=== PATIENT | male | born 1965 | race Caucasian/White ===

== ENCOUNTER 2016-09-05 16:40 | Emergency (ER) | payer SELFPAY ==
[2016-09-05 16:53] VITALS: BP 138/87
[2016-09-05] MEDS ORDERED: Tetan/Diph/Pertus SYR(Tdap)* 0.5 ML SYR(BOOSTRIX) use SYR IM ONE (16:56)
[2016-09-05] MEDS ORDERED: Lidocaine 2% PF* 5 ML VIAL ONE (16:59)
--- NOTE | 2016-09-05 18:04 | UC ---
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 LAST TETANUS UNKNOWN - History Of Current Complaint Chief Complaint: UCLaceration Stated Complaint: FINGER LAC Time Seen by Provider: 09/05/16 16:51 Hx Obtained From: Patient Laceration Location: Finger - RIGHT FOURTH Mechanism Of Injury: Sharp Trauma Pain Intensity: 0 Pain Scale Used: 0-10 Numeric Related History: Dominant Hand Right - Allergies/Home Medications Allergies/Adverse Reactions: Allergies Allergy/AdvReac Type Severity Reaction Status Date / Time Clarithromycin [From Biaxin] Allergy Rash Verified 09/05/16 16:53 Home Medications: Home Medications NK [No Home Medications Reported] 09/05/16 [History Confirmed 09/05/16] PMH/Surg Hx/FS Hx/Imm Hx Previously Healthy: Yes Endocrine History Of: Denies: Diabetes, Thyroid Disease Cardiovascular History Of: Denies: Cardiac Disorders, Hypertension Respiratory History Of: Denies: COPD, Asthma GI/ History Of: Denies: Ulcer - Surgical History Surgical History: None - Family History Known Family History: Negative: Blood Disorder - Social History Occupation: Employed Full-time Lives: With Family Alcohol Use: None Substance Use Type: None Smoking Status (MU): Heavy Every Day Tobacco Smoker Type: Cigarettes Review of Systems Constitutional: Negative Skin: Other - LACERATION DORSAL RIGHT FOURTH FINGER Eyes: Negative ENT: Negative Respiratory: Negative Cardiovascular: Negative Gastrointestinal: Negative Genitourinary: Negative Motor: Negative Neurovascular: Negative Musculoskeletal: Negative Neurological: Negative Psychological: Negative All Other Systems Reviewed And Are Negative: Yes Physical Exam Triage Information Reviewed: Yes Appearance: Well-Appearing, No Pain Distress, Well-Nourished Vital Signs: Initial Vital Signs Temp 98.1 F 09/05/16 16:50 Pulse 88 09/05/16 16:50 Resp 18 09/05/16 16:50 BP 138/87 09/05/16 16:50 Pulse Ox 97 09/05/16 16:50 Vital Signs Reviewed: Yes Eye Exam: Normal ENT Exam: Normal ENT: Positive: Normal ENT inspection, Hearing grossly normal, TMs normal Dental Exam: Normal Neck exam: Normal Neck: Positive: Supple, Nontender, No Lymphadenopathy Respiratory Exam: Normal Respiratory: Positive: Chest non-tender, Lungs clear, Normal breath sounds, No respiratory distress, No accessory muscle use Cardiovascular Exam: Normal Cardiovascular: Positive: RRR, No Murmur, Pulses Normal Abdominal Exam: Normal Musculoskeletal Exam: Normal Musculoskeletal: Positive: Strength Intact Neurological Exam: Normal Psychological Exam: Normal Skin: Positive: Other - LACERATION DORSAL RIGHT FOURTH FINGER 3CM Laceration Repair - Laceration Repair 1 Laceration Size After Repair: Length (cm) - 3, Width (mm) - 4, Depth (mm) - 4 Type Injection: Digital Anesthesia Used: 2.0% Lido Cleansing Completed Via Routine Prep: Yes Irrigation With Pressure Irrigation Device: Yes Closure Material: Sutures - 4 X 4-0 Closure Method: Single Layer Suture Of: Skin Suture Type: Prolene Laceration Course/Dx - Differential Dx - Laceration/Wound Differental Diagnoses: Avulsion, Laceration, Tendon Laceration Provider Diagnoses: LACERATION RIGHT DORSAL FOURTH FINGER WITH REPAIR Discharge - Discharge Plan Condition: Stable Disposition: HOME Patient Education Materials: Finger Laceration (ED) Referrals: [facility] [place] [facility] [Outside] No Primary Care Phys,NOPCP [Primary Care Provider] - Additional Instructions: PLEASE HAVE SUTURES REMOVED IN TEN DAYS Images Hands: 1 - SUTURE HERE
== END 2016-09-05 17:55 | disposition home or self-care (01) ==
LOC: UCEAST 16:40
DX: S61.214A Laceration without foreign body of right ring finger without damage to nail, initial encounter (principal); W31.89XA Contact with other specified machinery, initial encounter; Z88.3 Allergy status to other anti-infective agents; F17.210 Nicotine dependence, cigarettes, uncomplicated
CPT/HCPCS: 12001; 90715; 99201; G0463

== ENCOUNTER 2016-09-15 10:04 | Emergency (ER) | payer SELFPAY ==
[2016-09-15 11:24] VITALS: BP 129/85
[2016-09-15] MEDS ORDERED: Benzoin COMPOUND swab* 1 applicator pak TOPICAL ONE (11:29)
[2016-09-15] MEDS ORDERED: Benzoin Compound STICK ONE (11:33)
--- NOTE | 2016-09-15 11:38 | UC ---
HPI Wound/Suture Re-check - HPI Summary HPI Summary: here to have stitches removed from right index finger - History Of Current Complaint Chief Complaint: UCWounds Stated Complaint: STITCH REMOVAL Time Seen by Provider: 09/15/16 11:27 Hx Obtained From: Patient Onset/Duration: Sudden Onset, Lasting Weeks - 2, Still Present Surgical Site: 2 Severity: Mild Pain Intensity: 0 Pain Scale Used: 0-10 Numeric Surgery Date: 09/01/16 - Allergies/Home Medications Allergies/Adverse Reactions: Allergies Allergy/AdvReac Type Severity Reaction Status Date / Time Clarithromycin [From Biaxin] Allergy Rash Verified 09/05/16 16:53 PMH/Surg Hx/FS Hx/Imm Hx Previously Healthy: Yes Endocrine History Of: Denies: Diabetes, Thyroid Disease Cardiovascular History Of: Denies: Cardiac Disorders, Hypertension Respiratory History Of: Denies: COPD, Asthma GI/ History Of: Denies: Ulcer - Surgical History Surgical History: None - Family History Known Family History: Positive: None Negative: Blood Disorder - Social History Occupation: Employed Full-time Lives: With Family Alcohol Use: None Substance Use Type: None Smoking Status (MU): Heavy Every Day Tobacco Smoker Type: Cigarettes Have You Smoked in the Last Year: Yes Cessation Counseling: Patient Advised to Stop Review of Systems Constitutional: Negative Skin: Other - healing wounf right index finger Eyes: Negative ENT: Negative Respiratory: Negative Cardiovascular: Negative Gastrointestinal: Negative Genitourinary: Negative Motor: Negative Neurovascular: Negative Musculoskeletal: Negative Neurological: Negative Psychological: Negative All Other Systems Reviewed And Are Negative: Yes Physical Exam Triage Information Reviewed: Yes Appearance: Well-Appearing, No Pain Distress, Well-Nourished Vital Signs: Initial Vital Signs Temp 98.1 F 09/15/16 11:21 Pulse 69 09/15/16 11:21 Resp 18 09/15/16 11:21 BP 129/85 09/15/16 11:21 Pulse Ox 95 09/15/16 11:21 Vital Signs Reviewed: Yes Eye Exam: Normal Eyes: Positive: Conjunctiva Clear ENT Exam: Normal ENT: Positive: Normal ENT inspection, Hearing grossly normal. Negative: Nasal congestion, Nasal drainage, Trismus, Muffled/hoarse voice Dental Exam: Normal Neck exam: Normal Neck: Positive: Supple, Nontender, No Lymphadenopathy Respiratory Exam: Normal Respiratory: Positive: Chest non-tender, Lungs clear, Normal breath sounds, No respiratory distress, No accessory muscle use Cardiovascular Exam: Normal Cardiovascular: Positive: RRR, No Murmur, Pulses Normal, Brisk Capillary Refill Musculoskeletal Exam: Normal Musculoskeletal: Positive: Strength Intact, ROM Intact, No Edema Neurological Exam: Normal Neurological: Positive: Alert, Muscle Tone Normal Psychological Exam: Normal Skin Exam: Normal Skin: Positive: Other - healing wound left index finger Course/Dx - Course Course Of Treatment: steri strips for additional support follow with pcp prn - Differential Dx - Laceration/Wound Differential Diagnoses: Healing Wound, Suture Removal Provider Diagnoses: suture removal right idex finger , healing wound, nicotine dependant Discharge - Discharge Plan Condition: Stable Disposition: HOME Patient Education Materials: Stitches Removal (ED), Steristrips (ED) Referrals: [facility] [place] [facility]ERR[facility] [Outside] - If Needed
== END 2016-09-15 11:46 | disposition home or self-care (01) ==
LOC: UCEAST 10:04
DX: S61.200D Unspecified open wound of right index finger without damage to nail, subsequent encounter (principal); X58.XXXD Exposure to other specified factors, subsequent encounter; Z88.1 Allergy status to other antibiotic agents; F17.210 Nicotine dependence, cigarettes, uncomplicated

== ENCOUNTER 2017-06-24 17:53 | Emergency (ER) | payer SELFPAY ==
[2017-06-24 20:01] VITALS: BP 155/86
--- NOTE | 2017-06-24 20:37 | RAD ---
HISTORY: Left wrist injury COMPARISONS: None VIEWS: 4, Frontal, lateral, oblique, and scaphoid deviation views of the left wrist FINDINGS: BONE DENSITY: Normal. BONES: There is no displaced fracture. JOINTS: There is no arthropathy. ALIGNMENT: There is no dislocation. SOFT TISSUES: Unremarkable. OTHER FINDINGS: None. IMPRESSION: NO ACUTE OSSEOUS INJURY. IF SYMPTOMS PERSIST, RECOMMEND REPEAT IMAGING.
--- NOTE | 2017-06-28 09:59 | ED ---
Upper Extremity Pain - HPI Summary HPI Summary: Patient is an otherwise healthy 52-year-old male who presents to the ED with chief complaint of left wrist pain after a pull cord backlashed on his 4 burgess. He states the cord pulled at his wrist. He has range of motion, but with pain. Denies numbness, tingling, color or temperature changes to the hand. Pulses +2 bilaterally. Cap refill less than 2. He denies taking any medications daily. He has not taken anything for relief, and arrives with ice applied. - History of Current Complaint Chief Complaint: EDExtremityUpper Stated Complaint: SWOLLEN RT WRIST Time Seen by Provider: 06/24/17 20:13 Hx Obtained From: Patient Mechanism Of Injury: Twisted Onset/Duration: Started Hours Ago Timing: Constant Severity Initially: Moderate Severity Currently: Moderate Pain Location: Wrist Character: Aching Aggravating Factor(s): Movement Alleviating Factor(s): Rest, Ice Associated Signs & Symptoms: Positive: Negative Related History: Dominant Hand Right - Risk Factors Non-Orthopedic Risk Factor: Negative DVT Risk Factors: Negative Septic Arthritis Risk Factor: Negative Compartment Syndrome Risk Factors: Pain - Allergies/Home Medications Allergies/Adverse Reactions: Allergies Allergy/AdvReac Type Severity Reaction Status Date / Time MS Clarithromycin Allergy Rash Verified 09/05/16 16:53 [From Biaxin] PMH/Surg Hx/FS Hx/Imm Hx Previously Healthy: Yes Endocrine/Hematology History: Denies: Hx Diabetes, Hx Thyroid Disease Cardiovascular History: Denies: Hx Hypertension Respiratory History: Denies: Hx Asthma, Hx Chronic Obstructive Pulmonary Disease (COPD) GI History: Denies: Hx Ulcer Infectious Disease History: No Infectious Disease History: Denies: Hx Hepatitis, Hx Human Immunodeficiency Virus (HIV), Traveled Outside the [place] in Last 30 Days - Family History Known Family History: Positive: None Negative: Blood Disorder - Social History Occupation: Employed Full-time Lives: With Family Alcohol Use: None Hx Substance Use: No Substance Use Type: Reports: None Hx Tobacco Use: No Smoking Status (MU): Heavy Every Day Tobacco Smoker Type: Cigarettes Have You Smoked in the Last Year: Yes Review of Systems Constitutional: Negative Negative: Chills, Fatigue Eyes: Negative Cardiovascular: Negative Respiratory: Negative Genitourinary: Negative Positive: no symptoms reported, see HPI Positive: Arthralgia - left wrist pain Neurological: Negative Psychological: Normal All Other Systems Reviewed And Are Negative: Yes Physical Exam Triage Information Reviewed: Yes Vital Signs On Initial Exam: Initial Vitals Temp Pulse Resp BP Pulse Ox 97.6 F 91 17 148/85 98 06/24/17 18:36 06/24/17 18:36 06/24/17 18:36 06/24/17 18:36 06/24/17 18:36 Vital Signs Reviewed: Yes Appearance: Positive: Well-Appearing, Well-Nourished Skin: Positive: Warm, Skin Color Reflects Adequate Perfusion Head/Face: Positive: Normal Head/Face Inspection Eyes: Positive: EOMI, JUSTIN, Conjunctiva Clear Neck: Positive: Supple, Nontender, No Lymphadenopathy Respiratory/Lung Sounds: Positive: Clear to Auscultation, Breath Sounds Present Cardiovascular: Positive: Normal, RRR, Pulses are Symmetrical in both Upper and Lower Extremities Musculoskeletal: Positive: Pain @ - Left dorsum of the wrist Neurological: Positive: Speech Normal Psychiatric: Positive: Normal, Affect/Mood Appropriate Diagnostics - Vital Signs Vital Signs Temp Pulse Resp BP Pulse Ox 06/24/17 20:00 99.3 F 85 14 155/86 100 06/24/17 18:36 97.6 F 91 17 148/85 98 - Laboratory Lab Statement: Any lab studies that have been ordered have been reviewed, and results considered in the medical decision making process. Course/Dx - Course Course Of Treatment: During the course of treatment and x-ray of the wrist was obtained and negative for any acute findings. Korey wrap for comfort. Encouraged ibuprofen 600 mg 3 times daily and ice. He is okay with plan and discharged and will follow-up for any worsening or changing symptoms. - Diagnoses Provider Diagnoses: Contusion of left wrist Discharge - Discharge Plan Condition: Stable Disposition: HOME Patient Education Materials: Wrist Sprain (ED) Forms: *Work Release Referrals: No Primary Care Phys,NOPCP [Primary Care Provider] - Additional Instructions: Ibuprofen 600 mg 3 times daily Ice to the area Keep the area Korey wrapped 2 days
== END 2017-06-24 21:13 | disposition home or self-care (01) ==
LOC: ED 17:53
DX: S60.212A Contusion of left wrist, initial encounter (principal); X50.0XXA Overexertion from strenuous movement or load, initial encounter; Y92.9 Unspecified place or not applicable; F17.210 Nicotine dependence, cigarettes, uncomplicated; Z88.3 Allergy status to other anti-infective agents
CPT/HCPCS: 99282

== ENCOUNTER 2023-07-24 23:04 | Observation (INO) ==
[2023-07-24] MEDS: Lactated Ringers 1000 ml BAG 1,000 ML IV SCH (23:30)
[2023-07-24] MEDS: Ondansetron 4 mg VIAL 2 MG/ML 2 ml VIAL IV ONE (23:31)
[2023-07-25 00:01] LABS: ABS Basophils 0.1 10^3/uL (0.0-0.1); ABS Lymphocytes 0.6 10^3/uL (1.0-4.8); ABS Neutrophils 14.4 10^3/uL (1.5-7.6); Eosinophil % 0.1 %; Hematocrit 37.5 % (38-53); Hemoglobin 12.8 g/dL (13.2-16.3); Lymphocyte % 3.5 %; Mean Corpuscular Hemoglobin 30.8 pg (27-33); Mean Corpuscular Hgb Conc 34.1 g/dL (31-36); Mean Corpuscular Volume 90.3 fL (80-97); Mean Platelet Volume 8.4 fL (7.5-11.2); Platelet Count 140 10^3/uL (150-450); Red Blood Count 4.15 10^6/uL (4.06-5.63); Red Cell Distribution Width 14.1 % (12-17); White Blood Count 16.1 10^3/uL (3.6-10.2)
[2023-07-25 00:13] LABS: Albumin/Globulin Ratio 0.9 (1-3); C Reactive Protein 182.53 mg/L (<8.01); Calcium 7.5 mg/dL (8.6-10.3); Creatinine, Serum 1.67 mg/dL (0.67-1.17); Globulin 3.2 g/dL (2-4); Magnesium 2.4 mg/dL (1.9-2.7); Total Bilirubin 0.6 mg/dL (0.2-1.0); Total Protein 6.2 g/dL (6.4-8.9); eGFR CKD-EPI 47.7 (>60)
[2023-07-25] MEDS: Iodixanol (CONTRAST) 320 MG/ML 100 ML SDV IV ONE (03:55)
[2023-07-25 06:09] LABS: Urine Appearance Clear; Urine Bacteria Absent /HPF (Absent); Urine Bilirubin Negative (Negative); Urine Blood 2+ (Negative); Urine Color Yellow; Urine Glucose Negative (Negative); Urine Ketones Negative (Negative); Urine Nitrite Negative (Negative); Urine Protein 1+ (>=30 mg/dL) (Negative); Urine Red Blood Cell 3+(>10/hpf) /HPF (0-Trace); Urine Specific Gravity >1.050 (1.002-1.030); Urine Squamous Epithelial Cell Present /HPF (Absent); Urine Urobilinogen Negative (Negative); Urine White Blood Cell 1+(6-10/hpf) /HPF (0-Trace); Urine pH 5.5 (5.0-8.0)
[2023-07-25] MEDS: Nitrofurantoin (monohydrate/macrocrystals) 100 mg CAP PO ONE (07:09)
[2023-07-25] MEDS: Lactated Ringers 1000 ml BAG 1,000 ML IV ONE (08:00)
[2023-07-25] MEDS: Acetaminophen IV 1 GM/100ML 1,000 MG/100 ML BAG IV ONE (08:01)
[2023-07-25] MEDS: cefTRIAXone 1 gm/50 mL D5W 1 GM/50 ML BAG IV ONE (08:59)
[2023-07-25 10:06] LABS: Hematocrit 35.3 % (38-53); Hemoglobin 12.1 g/dL (13.2-16.3); Mean Corpuscular Hemoglobin 31.1 pg (27-33); Mean Corpuscular Hgb Conc 34.3 g/dL (31-36); Mean Corpuscular Volume 90.6 fL (80-97); Mean Platelet Volume 8.2 fL (7.5-11.2); Platelet Count 117 10^3/uL (150-450); Red Cell Distribution Width 14.1 % (12-17); White Blood Count 13.3 10^3/uL (3.6-10.2)
[2023-07-25] MEDS ORDERED: Polyethylene Glycol 3350 17 GM PACKET PO PRN (10:34)
[2023-07-25 11:02] LABS: Albumin 2.6 g/dL (3.2-5.2); Calcium 7.5 mg/dL (8.6-10.3); Creatinine, Serum 1.32 mg/dL (0.67-1.17); Globulin 2.7 g/dL (2-4); Potassium 3.8 mmol/L (3.5-5.0); Total Bilirubin 0.5 mg/dL (0.2-1.0); Total Protein 5.3 g/dL (6.4-8.9); eGFR CKD-EPI 63.3 (>60)
[2023-07-25 11:27] LABS: ABS Lymphocytes 0.7 10^3/uL (1.0-4.8); ABS Monocytes 0.6 10^3/uL (0.0-1.1); Eosinophil % 0.3 %; Lymphocyte % 5.1 %; RBC Morphology Normal (Normal)
[2023-07-25] MEDS: Lactated Ringers 1000 ml BAG 1,000 ML IV SCH (12:22)
[2023-07-25] MEDS: Enoxaparin 30 MG/0.3 ML SYR SUBCUT SCH (13:14)
[2023-07-26 06:07] LABS: ABS Monocytes 0.9 10^3/uL (0.0-1.1); ABS Neutrophils 9.1 10^3/uL (1.5-7.6); ABS Nucleated RBC 0.01 10^3/ul; Eosinophil % 0.3 %; Hematocrit 34.7 % (38-53); Hemoglobin 11.9 g/dL (13.2-16.3); Lymphocyte % 9.1 %; Mean Corpuscular Hemoglobin 30.9 pg (27-33); Mean Corpuscular Hgb Conc 34.3 g/dL (31-36); Mean Corpuscular Volume 90.2 fL (80-97); Mean Platelet Volume 8.6 fL (7.5-11.2); Nucleated Red Blood Cells % 0.1 %/100WBC (0.0-0.8); Platelet Count 114 10^3/uL (150-450); Red Blood Count 3.85 10^6/uL (4.06-5.63); Red Cell Distribution Width 14.1 % (12-17); White Blood Count 11.1 10^3/uL (3.6-10.2)
[2023-07-26 06:22] LABS: Calcium 7.3 mg/dL (8.6-10.3); Creatinine, Serum 0.84 mg/dL (0.67-1.17); eGFR CKD-EPI 102.3 (>60)
[2023-07-26] MEDS ORDERED: cefTRIAXone 1 gm/50 mL D5W 1 GM/50 ML BAG IV SCH (09:00)
[2023-07-26] MEDS: cefTRIAXone 1 gm/50 mL D5W 1 GM/50 ML BAG IV SCH (11:29)
[2023-07-26 12:53] LABS: Folate 7.85 ng/mL (5.90-24.80)
[2023-07-26 13:33] LABS: Ferritin 1485.7 ng/mL (24-336)
[2023-07-26 18:04] LABS: RBC Parasite Smear No Parasites Seen (No Parasite)
[2023-07-27] MEDS: Enoxaparin 40 MG/0.4 ML SYR SUBCUT SCH (08:50)
[2023-07-27 09:57] LABS: ABS Basophils 0.1 10^3/uL (0.0-0.1); ABS Lymphocytes 1.3 10^3/uL (1.0-4.8); ABS Monocytes 0.4 10^3/uL (0.0-1.1); ABS Neutrophils 8.2 10^3/uL (1.5-7.6); Eosinophil % 0.4 %; Hemoglobin 11.8 g/dL (13.2-16.3); Lymphocyte % 12.6 %; Mean Corpuscular Hemoglobin 30.7 pg (27-33); Mean Corpuscular Hgb Conc 33.9 g/dL (31-36); Mean Corpuscular Volume 90.7 fL (80-97); Mean Platelet Volume 8.2 fL (7.5-11.2); Platelet Count 142 10^3/uL (150-450); Red Blood Count 3.86 10^6/uL (4.06-5.63); Red Cell Distribution Width 14.3 % (12-17)
[2023-07-27 10:20] LABS: Calcium 7.4 mg/dL (8.6-10.3); Creatinine, Serum 0.8 mg/dL (0.67-1.17); eGFR CKD-EPI 103.9 (>60)
[2023-07-27 11:17] LABS: C Reactive Protein 82.79 mg/L (<8.01)
[2023-07-28 10:47] VITALS: BP 138/72
[2023-07-29 16:21] LABS: Anaplasma phagocytophilum Negative (Negative); B. miyamotoi PCR, B Negative (Negative); Babesia divergens/MO-1 Negative (Negative); Babesia ducani Negative (Negative); Ehrlichia chaffeensis Negative (Negative); Ehrlichia ewingii/canis Negative (Negative); Ehrlichia muris eauclairensis Negative (Negative)
[2023-07-29 16:38] LABS: IgG Immunoblot Positive (Negative); IgM Immunoblot Negative (Negative)
== END 2023-07-28 11:24 | disposition short-term general hospital (02) ==
LOC: EDHOLD 23:04 → ED 23:04 → SUATTDRO 07-25 08:57 → SSU 07-25 14:47
PROVIDERS: ADMIT Internal Medicine; ATTEND Hospitalist

== ENCOUNTER 2023-08-02 06:05 | Inpatient (IN) ==
[2023-08-02] MEDS: MULTIPLE ELECTROLYTES IV ONE (06:57)
[2023-08-02] MEDS: Piperacillin/Tazobac 3.375 BAG 3.375 GM/100 ML BAG IV ONE (06:59)
[2023-08-02] MEDS ORDERED: Vancomycin 1,000 MG in NS 0.9% 250 ml 250 ML IVPB ONE (07:00)
[2023-08-02 07:03] LABS: ABS Basophils 0.1 10^3/uL (0.0-0.1); ABS Lymphocytes 0.8 10^3/uL (1.0-4.8); ABS Monocytes 0.6 10^3/uL (0.0-1.1); ABS Neutrophils 15.6 10^3/uL (1.5-7.6); Hematocrit 38.7 % (38-53); Hemoglobin 13.3 g/dL (13.2-16.3); Lymphocyte % 4.9 %; Mean Corpuscular Hemoglobin 31.1 pg (27-33); Mean Corpuscular Hgb Conc 34.4 g/dL (31-36); Mean Corpuscular Volume 90.4 fL (80-97); Mean Platelet Volume 7.2 fL (7.5-11.2); Platelet Count 333 10^3/uL (150-450); Red Blood Count 4.28 10^6/uL (4.06-5.63); Red Cell Distribution Width 14.5 % (12-17); White Blood Count 17.1 10^3/uL (3.6-10.2)
[2023-08-02 07:10] LABS: INR 1.38 (0.83-1.13)
[2023-08-02 07:16] LABS: High Sens Troponin Baseline 29 pg/mL (<20)
[2023-08-02 07:49] LABS: ALT 145 U/L (7-52); AST 52 U/L (13-39); Albumin 3.4 g/dL (3.2-5.2); Albumin/Globulin Ratio 0.9 (1-3); Alcohol, S < 13 mg/dL (<13); Alkaline Phosphatase 99 U/L (35-149); Anion Gap 10 mmol/L (2-16); Blood Urea Nitrogen 19 mg/dL (6-24); CO2 Carbon Dioxide 26 mmol/L (22-32); Calcium 8.6 mg/dL (8.6-10.3); Chloride 96 mmol/L (101-111); Creatine Kinase 45 U/L (10-223); Creatinine, Serum 1.47 mg/dL (0.67-1.17); Globulin 3.7 g/dL (2-4); Glucose 102 mg/dL (70-100); Potassium 4.5 mmol/L (3.5-5.0); Sodium 132 mmol/L (135-145); Total Bilirubin 0.7 mg/dL (0.2-1.0); Total Protein 7.1 g/dL (6.4-8.9); eGFR CKD-EPI 55.6 (>60)
[2023-08-02] MEDS ORDERED: Albuterol HFA INHALER 8 gm MDI INH PRN (08:05)
[2023-08-02 08:17] LABS: High Sensitivity Troponin 1 Hr 25 pg/mL (<20)
[2023-08-02 08:48] LABS: Urine Appearance Clear; Urine Bilirubin Negative (Negative); Urine Blood Negative (Negative); Urine Color Light-Yellow; Urine Glucose Negative (Negative); Urine Ketones Negative (Negative); Urine Nitrite Negative (Negative); Urine Protein Trace (Negative); Urine Specific Gravity 1.017 (1.002-1.030); Urine Urobilinogen Negative (Negative); Urine pH 6.5 (5.0-8.0)
[2023-08-02] MEDS: Iohexol 350 (CONTRAST) 500 ML MDV IV ONE (09:02)
[2023-08-02] MEDS: Acetaminophen IV 1 GM/100ML 1,000 MG/100 ML BAG IV ONE (09:19)
[2023-08-02] MEDS: Vancomycin 1,000 MG in NS 0.9% 250 ml 250 ML IVPB ONE (09:41)
[2023-08-02 09:50] LABS: Direct Bilirubin 0.1 mg/dL (0.03-0.18); Indirect Bilirubin 0.6 mg/dL (0.3-1.0)
[2023-08-02 11:41] LABS: Urine Benzodiazepine Screen None Detected (None Detect); Urine Cannabinoids Screen None Detected (None Detect); Urine Opiates Screen None Detected (None Detect)
[2023-08-02 12:04] LABS: Cholesterol 125 mg/dL; HDL Cholesterol 22.4 mg/dL; LDL Cholesterol 83 mg/dL; Triglycerides 98 mg/dL
[2023-08-02] MEDS: Lactated Ringers 1000 ml BAG 1,000 ML IV ONE (12:10)
[2023-08-02] MEDS ORDERED: Vancomycin per Pharmacy 1 EA NOTE FOLLOW UP SCH (14:00)
[2023-08-02] MEDS ORDERED: Zosyn per Pharmacy NOTE FOLLOW UP SCH (14:00)
[2023-08-02] MEDS: Iodixanol (CONTRAST) 320 MG/ML 100 ML SDV IV ONE (16:26)
[2023-08-02] MEDS: Zosyn 3.375 gm X 1 dose, then dose per Pharmacy IV ONE (17:14)
[2023-08-02] MEDS: Enoxaparin 40 MG/0.4 ML SYR SUBCUT SCH (17:15)
[2023-08-02] MEDS: Vancomycin 1000 MG in NS 0.9% 250 ML IVPB SCH (19:36)
[2023-08-02] MEDS: ZOSYN 3.375 GM Q8H per EXTENDED INFUSION IV SCH (22:08)
[2023-08-03] MEDS: Lactated Ringers 1000 ml BAG 1,000 ML IV SCH (02:07)
[2023-08-03 06:56] LABS: ABS Lymphocytes 1.2 10^3/uL (1.0-4.8); ABS Monocytes 0.5 10^3/uL (0.0-1.1); ABS Neutrophils 10.2 10^3/uL (1.5-7.6); ABS Nucleated RBC 0.01 10^3/ul; Eosinophil % 0.2 %; Hemoglobin 10.4 g/dL (13.2-16.3); Lymphocyte % 9.9 %; Mean Corpuscular Hemoglobin 31.1 pg (27-33); Mean Corpuscular Hgb Conc 34.6 g/dL (31-36); Mean Corpuscular Volume 89.9 fL (80-97); Mean Platelet Volume 7.2 fL (7.5-11.2); Nucleated Red Blood Cells % 0.1 %/100WBC (0.0-0.8); Platelet Count 180 10^3/uL (150-450); Red Blood Count 3.34 10^6/uL (4.06-5.63); Red Cell Distribution Width 14.3 % (12-17)
[2023-08-03 07:44] LABS: ALT 53 U/L (7-52); Albumin 1.8 g/dL (3.2-5.2); Albumin/Globulin Ratio 0.8 (1-3); Alkaline Phosphatase 50 U/L (35-149); Anion Gap 15 mmol/L (2-16); Blood Urea Nitrogen 14 mg/dL (6-24); CO2 Carbon Dioxide 15 mmol/L (22-32); Calcium 5.5 mg/dL (8.6-10.3); Chloride 110 mmol/L (101-111); Creatinine, Serum 0.81 mg/dL (0.67-1.17); Globulin 2.4 g/dL (2-4); Glucose 91 mg/dL (70-100); Sodium 140 mmol/L (135-145); Total Bilirubin 0.5 mg/dL (0.2-1.0); Total Protein 4.2 g/dL (6.4-8.9); eGFR CKD-EPI 103.5 (>60)
[2023-08-03] MEDS ORDERED: Calcium Gluconate 2 GM in NS 0.9% 100 ml BAG 100 ML IVPB ONE (08:36)
[2023-08-03 09:01] LABS: Potassium Redraw 3.3 mmol/L (3.5-5.0)
[2023-08-03] MEDS: CALCIUM GLUCONATE 1GM/50ML NS BAG IV SCH (10:28)
[2023-08-03] MEDS: cefTRIAXone 2 gm/50 mL D5W 2 GM/50 ML BAG IV SCH (10:29)
[2023-08-03 15:02] LABS: C Reactive Protein 153.38 mg/L (<8.01); Calcium 7.5 mg/dL (8.6-10.3); Creatinine, Serum 0.85 mg/dL (0.67-1.17); Potassium 3.8 mmol/L (3.5-5.0)
[2023-08-03] MEDS ORDERED: Naloxone 0.4 mg VIAL 0.4 mg/ml 1 ml VIAL ONE (15:03)
[2023-08-03] MEDS ORDERED: Flumazenil 0.5 mg/5 ml 0.1 MG/ML 5 ml VIAL ONE (15:03)
[2023-08-03] MEDS ORDERED: Midazolam 5 mg/5 ml VIAL 1 mg/ml 5 ml VIAL (5 mg) ONE (15:03)
[2023-08-03] MEDS ORDERED: fentaNYL 100 mcg/2 ml 50 MCG/ML VIAL ONE (15:03)
[2023-08-03] MEDS: fentaNYL 100 mcg/2 ml 50 MCG/ML VIAL IV SLOW PU ONE (16:15)
[2023-08-03] MEDS: Midazolam 10 mg/10 ml VIAL 1 mg/ml 10 ml VIAL (10 mg) IV SLOW PU ONE (16:15)
[2023-08-03] MEDS: CALCIUM GLUCONATE 1GM/50ML NS 1 GM/50 ML BAG IV SCH (19:38)
[2023-08-04] MEDS: cefTRIAXone 2 gm/50 mL D5W 2 GM/50 ML BAG IV SCH (05:30)
[2023-08-04 06:08] LABS: ABS Lymphocytes 1.2 10^3/uL (1.0-4.8); ABS Monocytes 0.5 10^3/uL (0.0-1.1); ABS Neutrophils 8.2 10^3/uL (1.5-7.6); Eosinophil % 0.5 %; Hematocrit 32.8 % (38-53); Hemoglobin 11.3 g/dL (13.2-16.3); Lymphocyte % 11.9 %; Mean Corpuscular Hgb Conc 34.4 g/dL (31-36); Mean Platelet Volume 7.3 fL (7.5-11.2); Platelet Count 247 10^3/uL (150-450); Red Blood Count 3.64 10^6/uL (4.06-5.63); Red Cell Distribution Width 14.2 % (12-17)
[2023-08-04 07:09] LABS: Vitamin D Total 25(OH) < 7.0 ng/mL (20-50)
[2023-08-04 07:24] LABS: Anion Gap 6 mmol/L (2-16); Blood Urea Nitrogen 13 mg/dL (6-24); CO2 Carbon Dioxide 23 mmol/L (22-32); Calcium 7.8 mg/dL (8.6-10.3); Chloride 108 mmol/L (101-111); Glucose 111 mg/dL (70-100); Sodium 137 mmol/L (135-145); eGFR CKD-EPI 103.9 (>60)
[2023-08-04 08:34] VITALS: BP 109/76
[2023-08-04] MEDS ORDERED: Vancomycin Trough Check NOTE FOLLOW UP ONE (09:30)
[2023-08-04] MEDS ORDERED: cefTRIAXone 2 gm/50 mL D5W 2 GM/50 ML BAG IV SCH (10:30)
== END 2023-08-04 08:41 | disposition short-term general hospital (02) | DRG 720 ==
LOC: ED 06:05 → EDHOLD 06:05 → SUATTDRO 11:05 → SSU 18:22 → MEDTELE 08-03 12:43
PROVIDERS: ADMIT Hospitalist; ATTEND Internal Medicine